=== PATIENT | male | born 1940 | race Caucasian/White ===

== ENCOUNTER 2018-06-22 16:20 | Emergency (ER) | payer OTHER ==
[~2018-06-22] VITALS: Ht 172.7 cm; Wt 82.6 kg
[2018-06-22 16:26] VITALS: BP_SYST 117
[2018-06-22] MEDS ORDERED: IBUPROFEN 600 MG TABLET PO ONE (16:45)
[2018-06-22 17:40] VITALS: BP_SYST 120
== END 2018-06-22 17:40 | disposition home or self-care (01) ==
LOC: SED 16:20
DX: S33.5XXA Sprain of ligaments of lumbar spine, initial encounter (principal); V43.92XA Unspecified car occupant injured in collision with other type car in traffic accident, initial encounter; Y93.89 Activity, other specified; Y92.410 Unspecified street and highway as the place of occurrence of the external cause; Y99.8 Other external cause status
CPT/HCPCS: 72100-TC; 99283